=== PATIENT | female | born 1995 | race Caucasian/White ===

== ENCOUNTER 2023-05-01 08:40 | Emergency (ER) | payer BC, OTHER ==
[2023-05-01 09:37] LABS: HCG,QUALITATIVE URINE Negative
[2023-05-01] MEDS ORDERED: hydrOXYzine PAMOATE 25 MG CAPSULE (FP) PO ONE ×2 (09:39→09:45)
[2023-05-01 09:51] LABS: EPITHELIAL CELLS RARE /hpf
[2023-05-01 09:53] VITALS: BP 132/82; PULSE 88; RESP 18; TEMP 97.9; BMI 23.3
== END 2023-05-01 11:57 | disposition home or self-care (01) ==
LOC: FER 08:40
DX: F41.9 Anxiety disorder, unspecified (principal); G47.00 Insomnia, unspecified
CPT/HCPCS: 81003; 81015; 84703; 93005; 99284-25